=== PATIENT | male | born 1965 | race American Indian/Alaskan Native ===

== ENCOUNTER 2021-04-09 18:43 | Emergency (ER) | payer OTHER ==
[2021-04-09 20:08] VITALS: BP 165/100
--- NOTE | 2021-04-09 20:15 | Emergency Department Report ---
ED Fall HPI - General Stated Complaint: RT SIDE RIB PAIN Time Seen by Provider: 04/09/21 20:07 Source: patient Mode of arrival: Ambulatory Limitations: No Limitations - History of Present Illness Initial Comments: Patient is a 56-year-old male presents emergency room complaints of a fall that occurred last night. Patient states he was walking with some items in his hands. He states that he was walking down the steps inside his house and the steps are carpeted. He states he slipped and fell. He is complaining of right rib pain and left knee pain. He states as a child he did injure this knee and had to wear a cast for 6 weeks. He denies ever injuring his ribs in the past. He denies hitting his head, loss of consciousness, vision changes, vomiting, numbness, weakness, bowel or bladder incontinence, neck pain, back pain. Patient denies any past medical history. No allergies to medications. - Related Data Previous Rx's Medication Instructions Recorded Last Taken Type Pantoprazole [Protonix TAB] 40 mg PO QDAY #30 tablet 11/17/15 Unknown Rx Acetaminophen [Tylenol] 650 mg PO Q8HR PRN #20 capsule 04/09/21 Unknown Rx methOCARBAMOL [Robaxin TAB] 500 mg PO BID PRN #20 tab 04/09/21 Unknown Rx Allergies Allergy/AdvReac Type Severity Reaction Status Date / Time No Known Allergies Allergy Verified 11/13/15 15:58 ED Review of Systems ROS: Stated complaint: RT SIDE RIB PAIN Other details as noted in HPI Comment: All other systems reviewed and negative ED Past Medical Hx - Past Medical History Hx Congestive Heart Failure: No Hx Diabetes: No Hx Asthma: No Hx COPD: No - Social History Smoking Status: Current Every Day Smoker - Medications Home Medications: Home Medications Medication Instructions Recorded Confirmed Last Taken Type Pantoprazole [Protonix TAB] 40 mg PO QDAY #30 tablet 11/17/15 Unknown Rx Acetaminophen [Tylenol] 650 mg PO Q8HR PRN #20 capsule 04/09/21 Unknown Rx methOCARBAMOL [Robaxin TAB] 500 mg PO BID PRN #20 tab 04/09/21 Unknown Rx ED Physical Exam - General Limitations: No Limitations General appearance: alert, in no apparent distress - Head Head exam: Present: atraumatic, normocephalic - Eye Eye exam: Present: normal appearance - ENT ENT exam: Present: mucous membranes moist - Neck Neck exam: Present: normal inspection, full ROM. Absent: tenderness, meningismus - Respiratory Respiratory exam: Present: normal lung sounds bilaterally, chest wall tenderness (right lateral and right anterior rib ttp, no crepitus, no deformity, no ecchymosis, equal chest rise). Absent: respiratory distress, wheezes, rales, rhonchi, stridor, accessory muscle use, decreased breath sounds, prolonged expiratory - Cardiovascular Cardiovascular Exam: Present: regular rate, normal rhythm, normal heart sounds. Absent: systolic murmur, diastolic murmur, rubs, gallop - Extremities Exam Extremities exam: Present: other (mild left knee ttp, there is moderate edema present of the left knee, FROM of the LLE, no obvious deformity, neurovascularly intact) - Back Exam Back exam: Present: normal inspection, full ROM. Absent: paraspinal tenderness, vertebral tenderness - Neurological Exam Neurological exam: Present: alert, oriented X3, CN II-XII intact, normal gait. Absent: motor sensory deficit - Psychiatric Psychiatric exam: Present: normal affect, normal mood - Skin Skin exam: Present: warm, dry, intact ED Course Vital Signs 04/09/21 20:04 Temperature 98.9 F Pulse Rate 93 H Respiratory 16 Rate Blood Pressure 165/100 O2 Sat by Pulse 95 Oximetry ED Medical Decision Making - Radiology Data Radiology results: report reviewed Ordering Physician: JHONNY SOLO Date of Service: 04/09/21 Procedure(s): XR knee 3V LT Accession Number(s): [id number] cc: JHONNY SOLO Fluoro Time In Minutes: Left knee-3 views INDICATION: left knee pain and swelling after fall. COMPARISON: None. IMPRESSION: No acute osseous abnormality. Soft tissues are normal. Normal alignment. Moderate tricompartmental DJD with osteochondral bodies posteriorly presumably in a popliteal fossa cyst. Signer Name: Bernard Rogers MD Signed: 04/09/2021 9:27 PM Workstation Name: [id number] Transcribed By: DONNA Dictated By: Bernard Rogers MD Electronically Authenticated By: Bernard Rogers MD Signed Date/Time: 04/09/212126 DD/ 25 TD/TT: Print Ordering Physician: JHONNY SOLO Date of Service: 04/09/21 Procedure(s): XR ribs UNI w PA Chest 3+V RT Accession Number(s): [id number] cc: JHONNY SOLO Fluoro Time In Minutes: Ribs with PA chest-6 total views INDICATION: right rib pain after fall. COMPARISON: None. IMPRESSION: Minimal bibasilar atelectasis especially in the left lung base. Normal heart size. No displaced fracture identified. Signer Name: Bernard Rogers MD Signed: 04/09/2021 9:26 PM Workstation Name: [id number] Transcribed By: DONNA Dictated By: Bernard Rogers MD Electronically Authenticated By: Bernard Rogers MD Signed Date/Time: 04/09/212125 DD/ 24 TD/TT: Print - Medical Decision Making Patient is a 56-year-old male presents emergency room complaints of a fall that occurred last night. Patient states he was walking with some items in his hands. He states that he was walking down the steps inside his house and the steps are carpeted. He states he slipped and fell. He is complaining of right rib pain and left knee pain. He states as a child he did injure this knee and had to wear a cast for 6 weeks. He denies ever injuring his ribs in the past. He denies hitting his head, loss of consciousness, vision changes, vomiting, numbness, weakness, bowel or bladder incontinence, neck pain, back pain. Patient denies any past medical history. No allergies to medications. vss. on exam: right lateral and right anterior rib ttp, no crepitus, no deformity, no ecchymosis, equal chest rise, mild left knee ttp, there is moderate edema present of the left knee, FROM of the LLE, no obvious deformity, neurovascularly intact. XR left knee: IMPRESSION: No acute osseous abnormality. Soft tissues are normal. Normal alignment. Moderate tricompartmental DJD with osteochondral bodies posteriorly presumably in a popliteal fossa cyst. XR ribs with chest: IMPRESSION: Minimal bibasilar atelectasis especially in the left lung base. Normal heart size. No displaced fracture identified. Patient is a smoker, discuss smoking cessation. Patient has no clinical signs of pneumonia, patient is not having any URI symptoms. Patient has no pleuritic chest pain. Pain is reproducible. Given prescription for medications. Advised patient Please take medication as prescribed as needed. Follow-up with a primary care doctor for reexamination. May use ice pack, heating pad, rest, salt bath. Return to emergency room for new or worsening symptoms. Critical care attestation.: If time is entered above; I have spent that time in minutes in the direct care of this critically ill patient, excluding procedure time. ED Disposition Clinical Impression: Rib pain on right side Fall Qualifiers: Encounter type: initial encounter Qualified Code(s): W19.XXXA - Unspecified fall, initial encounter Left knee pain Qualifiers: Chronicity: acute Qualified Code(s): M25.562 - Pain in left knee Disposition: TO HOME OR SELFCARE Is pt being admited?: No Does the pt Need Aspirin: No Condition: Stable Instructions: Arthritis, Musculoskeletal Pain Additional Instructions: Please take medication as prescribed as needed. Follow-up with a primary care doctor for reexamination. May use ice pack, heating pad, rest, salt bath. Return to emergency room for new or worsening symptoms. Your x-rays show no signs of fracture or dislocation Please stop smoking Your knee x-ray shows you have osteoarthritis Prescriptions: methOCARBAMOL [Robaxin TAB] 500 mg PO BID PRN #20 tab PRN Reason: muscle spasm/pain Acetaminophen [Tylenol] 650 mg PO Q8HR PRN #20 capsule PRN Reason: pain Referrals: PRIMARY CARE, [Primary Care Provider] - 2-3 Days Forms: Work/School Release Form(ED) Time of Disposition: 21:34 Print Language: CHADIAN
--- NOTE | 2021-04-09 21:30 | XRay Report ---
Ribs with PA chest-6 total views INDICATION: right rib pain after fall. COMPARISON: None. IMPRESSION: Minimal bibasilar atelectasis especially in the left lung base. Normal heart size. No dis placed fracture identified. Signer Name: Bernard Rogers MD Signed: 04/09/2021 9:26 PM Workstation Name: [id number]
--- NOTE | 2021-04-09 21:31 | XRay Report ---
Left knee-3 views INDICATION: left knee pain and swelling after fall. COMPARISON: None. IMPRESSION: No acute osseous abnormality. Soft tissues are normal. Normal alignment. Moderate tri compartmental DJD with osteochondral bodies posteriorly presumably in a popliteal fossa cyst. Signer Name: Bernard Rogers MD Signed: 04/09/2021 9:27 PM Workstation Name: [id number]
== END 2021-04-09 21:50 | disposition home or self-care (01) ==
LOC: ED 18:43
DX: R07.81 Pleurodynia (principal); M25.562 Pain in left knee; F17.200 Nicotine dependence, unspecified, uncomplicated; Z79.899 Other long term (current) drug therapy; W01.0XXA Fall on same level from slipping, tripping and stumbling without subsequent striking against object, initial encounter; Y93.89 Activity, other specified; Y92.89 Other specified places as the place of occurrence of the external cause; Y99.8 Other external cause status